=== PATIENT | female | born 1945 | race Caucasian/White ===

== ENCOUNTER 2018-03-04 12:41 | Outpatient (CLI) | payer MEDICARE, OTHER ==
--- NOTE | 2018-03-04 13:54 | RAD ---
CHEST TWO VIEWS: History: Dyspnea. FINDINGS: Cardiac silhouette is enlarged. Pulmonary vasculature is slightly engorged with mild patchy bilateral perihilar and bibasilar infiltrates. Mediastinum is midline with aortic calcification. No lobar cons olidation, pneumothorax, or significant pleural fluid are apparent. IMPRESSION: 1. Cardiomegaly. Mild pulmonary vascular congestion. 2. Atherosclerosis. POS: [facility]
== END 2018-03-04 12:42 | disposition home or self-care (01) ==
LOC: RAD 12:41
PROVIDERS: ATTEND Internal Medicine Critical Care Medicine
DX: R06.00 Dyspnea, unspecified (principal); I70.0 Atherosclerosis of aorta; I51.7 Cardiomegaly; R09.89 Other specified symptoms and signs involving the circulatory and respiratory systems
CPT/HCPCS: 71046

== ENCOUNTER 2018-11-30 13:11 | Outpatient (CLI) | payer MEDICARE, OTHER ==
--- NOTE | 2018-12-01 12:59 | PFT ---
PATIENT HISTORY: HEIGHT: 64 WEIGHT: 142 SMOKER: NEVER HOW LONG: PACKS PER DAY PRODUCTIVE COUGH: LUNG DISEASE: PHYSICIAN INTERPRETATION FINAL REPORT: There is moderate reduction in Expiratory Flows and Vital Capacity, without any improvement after bronchodilator therapy. RV was normal, RV/TLC was increased; gas transfer is reduced. Diffusion capacity was 45%. IMPRESSION: Mixed obstructive/restrictive pulmonary impairment. 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
== END 2018-11-30 13:12 | disposition home or self-care (01) ==
LOC: CP 13:11
PROVIDERS: ATTEND Internal Medicine Critical Care Medicine
DX: R06.09 Other forms of dyspnea (principal); R94.2 Abnormal results of pulmonary function studies
CPT/HCPCS: 94060; 94727; 94729

== ENCOUNTER 2018-11-30 15:09 | Outpatient (CLI) | payer MEDICARE, OTHER ==
--- NOTE | 2018-11-30 17:29 | RAD ---
EXAM: CHEST TWO VIEWS: 11/30/18 HISTORY: Dyspnea. COMPARISON: 03/04/18. FINDINGS: There is stable cardiomegaly. Minimal stable increased linear and interstitial markings bilaterally, evidence for some stable chronic changes with biapical pleural thickening. No confluent pneumonia, ov ert edema or pleural effusion. IMPRESSION: Stable cardiomegaly with chronic lung changes and bilateral pleural thickening. No significant new pr ocess. No evidence for pneumonia. POS: [facility]
== END 2018-11-30 15:10 | disposition home or self-care (01) ==
LOC: RAD 15:09
PROVIDERS: ATTEND Internal Medicine Critical Care Medicine
DX: R06.00 Dyspnea, unspecified (principal); J92.9 Pleural plaque without asbestos; I51.7 Cardiomegaly; J98.4 Other disorders of lung
CPT/HCPCS: 71046; 94060; 94727; 94729

== ENCOUNTER 2021-07-18 10:25 | Outpatient (CLI) | payer MEDICARE, OTHER | END 2021-07-18 10:26 | disposition home or self-care (01) | LOC: BICRAD 10:25 | PROVIDERS: ATTEND Internal Medicine Pulmonary Disease | DX: R06.00 Dyspnea, unspecified (principal) | CPT/HCPCS: 71046 ==